=== PATIENT | female | born 1990 | race Caucasian/White ===

== ENCOUNTER 2018-09-10 16:26 | Emergency (ER) | payer MEDICAID, OTHER ==
[2018-09-10 16:27] VITALS: BMI 26.2
[2018-09-10 16:37] VITALS: RESP 18; O2SAT 100
[2018-09-10] MEDS ORDERED: Naproxen 550 mg Tab PO STA (16:55)
--- NOTE | 2018-09-10 17:03 | C.PDOC ---
History Of Present Illness 28 y/o female presents to ED complaining of right-sided rib pain since 3 days ago. States today she had cold sweats and lightheadedness. She denies any chest pain, breast pain, nausea, vomiting, or other complaints. Reports she took Advil with some relief. Chief Complaint (Nursing): Rib Injury History Per: Patient History/Exam Limitations: no limitations Onset/Duration Of Symptoms: Days Current Symptoms Are (Timing): Still Present Past Medical History Reviewed: Historical Data, Nursing Documentation, Vital Signs Vital Signs: Last Vital Signs Temp 98.7 F 09/10/18 16:33 Pulse 85 09/10/18 16:33 Resp 18 09/10/18 16:33 BP 131/83 09/10/18 16:33 Pulse Ox 100 09/10/18 16:33 Primary Care Provider: Clinic,Med Surg Family History: States: No Known Family Hx - Social History Hx Alcohol Use: Yes Hx Substance Use: No - Immunization History Hx Tetanus Toxoid Vaccination: No Hx Influenza Vaccination: No Hx Pneumococcal Vaccination: No Review Of Systems Constitutional: Negative for: Fever, Chills Cardiovascular: Negative for: Chest Pain Respiratory: Negative for: Shortness of Breath Gastrointestinal: Negative for: Nausea, Vomiting Musculoskeletal: Positive for: Other (right-sided rib pain). Negative for: Neck Pain Skin: Negative for: Rash Neurological: Negative for: Weakness, Numbness Physical Exam - Physical Exam Appears: Non-toxic, No Acute Distress Skin: Warm, Dry Head: Atraumatic, Normacephalic Eye(s): bilateral: Normal Inspection, PERRL Ear(s): Bilateral: Normal Nose: No Discharge Oral Mucosa: Moist Tongue: Normal Appearing Lips: Normal Appearing Throat: No Erythema, No Exudate Neck: Normal ROM, Supple Cardiovascular: Rhythm Regular Respiratory: Normal Breath Sounds, No Wheezing Gastrointestinal/Abdominal: Soft Extremity: Tenderness (slight tenderness under right breast along the rib cage, no erythema or ecchymosis), No Pedal Edema, No Calf Tenderness, No Deformity, No Swelling Extremity: Bilateral: Atraumatic, Normal Color And Temperature, Normal ROM Neurological/Psych: Oriented x3, Normal Speech, Normal Motor, Normal Sensation Gait: Steady ED Course And Treatment - Laboratory Results Result Diagrams: 09/10/18 17:35 09/10/18 17:35 O2 Sat by Pulse Oximetry: 100 (RA) Pulse Ox Interpretation: Normal - Other Rad Ribs with chest XR X-Ray: Read By Radiologist Interpretation: FINDINGS: RIGHT RIBS: No acute displaced fracture identified. LUNGS: No focal consolidation. Please note that chest x-ray has limited sensitivity for the detection of pulmonary masses. PLEURA: No significant pleural effusion. No definite pneumothorax. CARDIOVASCULAR: Heart size appears within normal limits. No pulmonary vascular congestion. No aortic atherosclerotic calcification present. OTHER FINDINGS: None. IMPRESSION: Unremarkable radiographs of the chest and right ribs. No appreciable displaced right rib fracture. Medical Decision Making Medical Decision Making: Plan: --Ribs and Chest XR ordered and reviewed --d/w patient and she will folow up with PMD if symptoms persist --Urine Preg- neg --Naproxen 550 mg PO -- patient stable for discharge Disposition Counseled Patient/Family Regarding: Studies Performed, Diagnosis, Need For Followup, Rx Given - Disposition Referrals: [facility] [facility] [Outside] Disposition: HOME/ ROUTINE Disposition Time: 18:11 Condition: IMPROVED Additional Instructions: Continue Naproxen BID Lidoderm patch to the site Follow up with PMD if symptoms persist Return to the ED if symptoms worsen Prescriptions: Lidocaine 5% [Lidoderm] 1 ea TD DAILY PRN #30 patch PRN Reason: Pain, Moderate (4-7) Naproxen [Naprosyn] 500 mg PO BID #30 tablet Instructions: Costochondritis (DC) Forms: [employer] (Greek) - Clinical Impression Clinical Impression: Rib pain on right side, Costochondritis - PA / LOCOMOTIVE OBSERVER / Resident Statement MD/DO has reviewed & agrees with the documentation as recorded. - Scribe Statement The provider has reviewed the documentation as recorded by the Radhaibflori Greenwood All medical record entries made by the Bandar were at my direction and personally dictated by me. I have reviewed the chart and agree that the record accurately reflects my personal performance of the history, physical exam, medical decision making, and the department course for this patient. I have also personally directed, reviewed, and agree with the discharge instructions and disposition.
[2018-09-10] MEDS ORDERED: Naproxen 550 mg Tab PO ONE (17:17)
[2018-09-10 17:43] LABS: BASO % 0.2 % (0.0-2.0); EOS # 0.1 K/uL (0.0-0.7); EOS % 1.3 % (0.0-4.0); HEMOGLOBIN 13.5 g/dL (11.0-16.0); LYMPH # 0.9 K/uL (1.0-4.3); MEAN CORPUSCULAR HEMOGLOBIN 32.3 pg (27.0-31.0); MEAN CORPUSCULAR HGB CONC 34.6 g/dL (33.0-37.0); MEAN PLATELET VOLUME 7.3 fL (7.2-11.7); MONO # 0.8 K/uL (0.0-0.8); MONO % 9.6 % (0.0-10.0); NEUT # 6.5 K/uL (1.8-7.0); NEUT % 77.9 % (50.0-75.0); RBC 4.17 Mil/uL (3.80-5.20); RED CELL DISTRIBUTION WIDTH 12.9 % (11.5-14.5); WHITE BLOOD COUNT 8.4 K/uL (4.8-10.8)
[2018-09-10 17:44] LABS: MEAN CELL VOLUME 93.5 fL (81.0-99.0)
[2018-09-10 17:55] LABS: ALB/GLOB RATIO 1.5 (1.0-2.1); ALBUMIN 4.5 g/dL (3.5-5.0); ALT/SGPT 75 U/L (9-52); AST/SGOT 54 U/L (14-36); BLOOD UREA NITROGEN 8 mg/dL (7-17); CALCIUM 10.1 mg/dl (8.6-10.4); GFR NON-AFRICAN AMERICAN > 60
[2018-09-10] MEDS ORDERED: Lidocaine 5% Patch TD STA (18:13)
--- NOTE | 2018-09-10 18:13 | RAD ---
Date of service: 09/10/2018 PROCEDURE: Radiographs of the Chest and Right Ribs. Three views. HISTORY: rib pain COMPARISON: None available. TECHNIQUE: Frontal radiograph of the chest and multiple oblique radiographs of the right ribs were obtained. FINDINGS: RIGHT RIBS: No acute displaced fracture identified. LUNGS: No focal consolidation. Please note that chest x-ray has limited sensitivity for the detection of pulmonary masses. PLEURA: No significant pleural effusion. No definite pneumothorax. CARDIOVASCULAR: Heart size appears within normal limits. No pulmonary vascular congestion. No aortic atherosclerotic calcification present OTHER FINDINGS: None. IMPRESSION: Unremarkable radiographs of the chest and right ribs. No appreciable displaced right rib fracture.
[2018-09-10] MEDS ORDERED: Lidocaine 5% Patch TD ONE (18:24)
[2018-09-10 18:26] VITALS: BP 134/75; PULSE 79; TEMP 99.3
== END 2018-09-10 18:26 | disposition home or self-care (01) ==
LOC: C.ER 16:26
DX: M94.0 Chondrocostal junction syndrome [Tietze] (principal)

== ENCOUNTER 2018-09-11 22:01 | Emergency (ER) | payer MEDICAID, OTHER ==
[2018-09-11 22:01] VITALS: BMI 26.2
--- NOTE | 2018-09-11 22:15 | C.PDOC ---
History Of Present Illness 28 year old female presents to the ED c/o persistent abdominal pain for the past 4 days. Patient c/o abdominal pain now in RLQ associated with bloating and nausea. Patient was seen in the ED on 09/10 for 3 day history of RUQ/RLQ abdom inal pain, sweats and lightheadedness. Patient at the time had CXR done, labs were negative, she was discharged with Naprosyn and Lidoderm. Patient reports since taking Naprosyn now with increased tingling of bilateral hands and legs. Patient denies focal weakness, fever, chills, diarrhea, back pain, UTI symptoms. Patient poor historian. POOR HISTORIAN PERSIST ABD PAIN X 4 DAYS. SEEN 09/10 FOR 3 DAYS RUQ/RIB PAIN, SWEATS AND LIGHTHEADEDNESS. CXR, LABS NEG. DC NAPROSYN AND LIDODERM. PS SINCE TAKING NAPROSYN NOW W INCR GEN TINGLING B/L HANDS AND LEGS. DENIES FOCAL WEAKNESS. ABD PAIN NOW IN RLQ, +ASSOC BLOATING. NO ASSOC W EATING. +NAUSEA. NO NEW FEVER. PSH NEG. DENIES UTI SX. EXAM MILD DIST NONTOXIC HEENT ANICERTIC; MMM ABD SOFT NT ND NO R/G REMAINDER NEG MDM PERSIST ABD PAIN. PT GIVING CONTRADICTORY DURATION OF SX, STATES SX X 2 DAYS DESPITE PRIOR VISITS DOCUMENTED X 3 DAYS. REPEAT LABS, IMAGING, REEVAL Time Seen by Provider: 09/11/18 22:13 Chief Complaint (Nursing): Medical Clearance History Per: Patient History/Exam Limitations: no limitations Onset/Duration Of Symptoms: Days (4) Current Symptoms Are (Timing): Still Present Reports Recently: Seen In ED (09/10/2018) Recent travel outside of the [place]: No Additional History Per: Patient Past Medical History Reviewed: Historical Data, Nursing Documentation, Vital Signs Vital Signs: Last Vital Signs Temp 97.7 F 09/11/18 22:06 Pulse 70 09/11/18 22:06 Resp 18 09/11/18 22:06 BP 146/74 09/11/18 22:06 Pulse Ox 99 09/11/18 22:06 Primary Care Provider: Non [facility] Provider, - Medical History PMH: No Chronic Diseases Denies: Chronic Kidney Disease Surgical History: No Surg Hx Family History: States: Unknown Family Hx - Social History Hx Alcohol Use: Yes Hx Substance Use: No - Immunization History Hx Tetanus Toxoid Vaccination: No Hx Influenza Vaccination: No Hx Pneumococcal Vaccination: No Review Of Systems Constitutional: Negative for: Fever, Chills Cardiovascular: Negative for: Chest Pain, Palpitations Respiratory: Negative for: Shortness of Breath Gastrointestinal: Positive for: Nausea, Abdominal Pain. Negative for: Vomiting, Diarrhea Genitourinary: Negative for: Dysuria, Hematuria, Vaginal Discharge Musculoskeletal: Negative for: Back Pain Skin: Negative for: Rash Neurological: Positive for: Other (tingling). Negative for: Weakness, Numbness, Headache, Dizziness Physical Exam - Physical Exam Appears: Non-toxic, In Acute Distress Skin: Normal Color, Warm, Dry Head: Atraumatic, Normacephalic Eye(s): bilateral: Normal Inspection (anicteric) Oral Mucosa: Moist Neck: Normal ROM, Supple Chest: Symmetrical Cardiovascular: Rhythm Regular Respiratory: Normal Breath Sounds, No Rales, No Rhonchi, No Wheezing Gastrointestinal/Abdominal: Soft, No Tenderness, No Distention, No Guarding, No Rebound Back: No CVA Tenderness Extremity: Normal ROM, No Tenderness, No Swelling Neurological/Psych: Oriented x3, Normal Speech, Normal Cognition Gait: Steady ED Course And Treatment - Laboratory Results Result Diagrams: 09/11/18 23:04 09/11/18 23:04 Urine POC: Negative ECG: Interpreted By Me, Viewed By Me ECG Rhythm: Sinus Rhythm Rate From EC (BPM) O2 Sat by Pulse Oximetry: 99 (ON RA) Pulse Ox Interpretation: Normal - CT Scan/US CT abd/pelvis Other Rad Studies (CT/US): Read By Radiologist, Radiology Report Reviewed CT/US Interpretation: CT SCAN OF THE ABDOMEN AND PELVIS WITH CONTRAST. CLINICAL HISTORY: Right lower quadrant pain. TECHNIQUE: Multiple axial and coronal CT i mages were obtained through the abdomen and pelvis after administration of intravenous contrast material. COMMENTS: Minimal ground glass densities in the right lower lobe, probably developing pneumonia. Unremarkable intrauterine device. Changes of pelvic congestion syndrome. Uncomplicated colonic diverticulosis. Distended bladder. The liver is of uniform attenuation without mass or defect. There is no intra or extrahepatic biliary ductal dilatation. The spleen is normal. The gallbladder is within normal limits. The pancreas is of normal contour and attenuation characteristics. There is no evidence of adrenal mass. Both kidneys demonstrate prompt and equal nephrograms. The kidneys are normal in size, shape and configuration. There is no evidence of renal or ureteral mass. No renal or ureteral calculi are identified. There is no hydroureter or hydronephrosis. No evidence for appendicitis. There is no bowel wall thickening. No evidence for small or large bowel obstruction. There is no evidence of abdominal ascites or lymphadenopathy. There is no evidence of intrinsic or extrinsic bladder mass. There is no pelvic ascites or lymphadenopathy. Images of the lung bases show no evidence of pleural or parenchymal mass. There are no pleural effusions. The bony structures are free of lytic or blastic lesions. IMPRESSION: Minimal ground glass densities in the right lower lobe, probably developing pneumonia. Unremarkable intrauterine device. Changes of pelvic congestion syndrome. Uncomplicated colonic diverticulosis. Distended bladder. Thank you for your kind referral of this patient. . Electronically signed on September 12, 2018 12:51:45 AM EDT by: Aissatou Hdez M.D., Certified by ABR, MSK, Neuroradiology. Progress - Re-Evaluation Re-evaluation Note: 09/11/18 23:30 ANXIOUS, VSS. PT REQUESTING TX FOR ANXIETY REACTION. CT PENDING 09/12/18 01:02 FEELS BETTER NAD VSS. CT REPORT REVIEWED - Data Reviewed Data Reviewed: Lab, Diagnostic imaging, Old records Medical Decision Making Medical Decision Making: Plan: * Labs * Lidocaine IV * IV fluids * Zofran 4 mg IVP * UA Persistent abd pain. Patient giving contradictory duration of symptoms, states symptoms for 3 days despite prior documented visits for 3 days. Will repeat labs, imaging and reeval Disposition Counseled Patient/Family Regarding: Studies Performed, Diagnosis, Need For Followup, Rx Given - Disposition Referrals: YOUR,PMD [Other] Disposition: HOME/ ROUTINE Disposition Time: 01:02 Condition: IMPROVED Prescriptions: Azithromycin 1 tab PO DAILY #4 tab Instructions: Community-Acquired Pneumonia, Adult (DC) Forms: [facility] (Indonesian), Work Excuse - Clinical Impression Clinical Impression: Community acquired pneumonia, Anxiety reaction - Scribe Statement The provider has reviewed the documentation as recorded by the Scribe Grayson Weldon All medical record entries made by the Scribe were at my direction and personally dictated by me. I have reviewed the chart and agree that the record accurately reflects my personal performance of the history, physical exam, medical decision making, and the department course for this patient. I have also personally directed, reviewed, and agree with the discharge instructions and disposition.
[2018-09-11] MEDS ORDERED: Sodium Chloride 0.9% 250 ML IV ONE (22:28)
[2018-09-11] MEDS ORDERED: Lidocaine 95 MG in Sodium Chloride 0.9% 100 ML IV STA (22:28)
[2018-09-11 23:11] LABS: HEMOGLOBIN 13.5 g/dL (11.0-16.0); MEAN CORPUSCULAR HGB CONC 34.6 g/dL (33.0-37.0); SQUAMOUS EPITHIAL 1 /hpf (0-5); URINE BILIRUBIN NEGATIVE (NEGATIVE); URINE BLOOD NEGATIVE (NEGATIVE); URINE CLARITY Clear (Clear); URINE COLOR Straw (YELLOW); URINE GLUCOSE (UA) NORMAL (Normal); URINE LEUKOCYTE ESTERASE NEG Leu/uL (Negative); URINE PROTEIN NEGATIVE (NEGATIVE); URINE UROBILINOGEN NORMAL mg/dL (0.2-1.0)
[2018-09-11 23:19] LABS: BASO % 0.2 % (0.0-2.0); EOS % 0.2 % (0.0-4.0); LYMPH # 1.2 K/uL (1.0-4.3); LYMPH % 16.8 % (20.0-40.0); MEAN CELL VOLUME 94.6 fL (81.0-99.0); MEAN CORPUSCULAR HEMOGLOBIN 32.7 pg (27.0-31.0); MEAN PLATELET VOLUME 7.8 fL (7.2-11.7); MONO % 13.3 % (0.0-10.0); NEUT # 5.1 K/uL (1.8-7.0); NEUT % 69.5 % (50.0-75.0); RBC 4.13 Mil/uL (3.80-5.20); RED CELL DISTRIBUTION WIDTH 12.9 % (11.5-14.5); WHITE BLOOD COUNT 7.3 K/uL (4.8-10.8)
[2018-09-11 23:21] LABS: ALB/GLOB RATIO 1.3 (1.0-2.1); ALBUMIN 4.6 g/dL (3.5-5.0); ALT/SGPT 76 U/L (9-52); AST/SGOT 53 U/L (14-36); BLOOD UREA NITROGEN 10 mg/dL (7-17); CALCIUM 10.3 mg/dl (8.6-10.4); GFR NON-AFRICAN AMERICAN > 60; LIPASE 46 U/L (23-300)
[2018-09-11] MEDS ORDERED: Iodixanol 320 MG/ML 100 ML BOTTLE IV ONE (23:44)
[2018-09-12] MEDS ORDERED: Azithromycin 500 MG in Sodium Chloride 0.9% 250 ML IV STA (00:57)
[2018-09-12] MEDS ORDERED: Azithromycin 500mg/250ML NS 500 MG/250 ML BAG IVPB ONE (01:11)
[2018-09-12 01:51] VITALS: RESP 16; O2SAT 98
[2018-09-12 02:35] VITALS: BP 113/58; PULSE 65; TEMP 98.4
--- NOTE | 2018-09-12 12:25 | CT ---
Date of service: 09/11/2018 PROCEDURE: CT Abdomen and Pelvis with contrast HISTORY: RLQ PAIN COMPARISON: None available. TECHNIQUE: Contrast dose: 100 mL Visipaque 320 IV Radiation dose: Total exam DLP = 839.54 mGy-cm. This CT exam was performed using one or more of the following dose reduction techniques: Automated exposure control, adjustment of the mA and/or kV according to patient size, and/or use of iterative reconstruction technique. FINDINGS: LOWER THORAX: Patchy right greater than left ground-glass nodular opacities may reflect developing pneumonia. No visible pleural effusion or pneumothorax. LIVER: Hypoattenuation of the liver compatible with hepatic steatosis. Hepatomegaly. GALLBLADDER AND BILE DUCTS: Unremarkable. PANCREAS: Unremarkable. SPLEEN: Unremarkable. ADRENALS: Unremarkable. KIDNEYS AND URETERS: The kidneys enhance symmetrically. No hydronephrosis or obstructing calculus identified. VASCULATURE: No aortic aneurysm. No atherosclerotic calcification or mural plaque present. BOWEL: Stomach is nondistended. Lack of oral contrast limits evaluation for bowel pathology. Bowel loops appear within normal limits of caliber without evidence of obstruction. Diverticulosis without CT evidence of acute diverticulitis. APPENDIX: The appendix appears within normal limits of caliber. No secondary signs of acute appendicitis. PERITONEUM: No significant free fluid. No definite free air. LYMPH NODES: No bulky adenopathy identified. BLADDER: Distended urinary bladder appears otherwise grossly unremarkable. REPRODUCTIVE: Uterus is present. IUD. Mild vascular prominence may reflect pelvic congestion syndrome. BONES: No acute osseous abnormality is detected. OTHER FINDINGS: None. IMPRESSION: Patchy right greater than left ground-glass nodular opacities may reflect developing pneumonia. Hypoattenuation of the liver compatible with hepatic steatosis. Hepatomegaly. Diverticulosis without CT evidence of acute diverticulitis. Urinary bladder distension, otherwise grossly unremarkable. Uterus is present. IUD. Mild vascular prominence may reflect pelvic congestion syndrome. Additional findings as above. Preliminary impression was provided by [employer].
--- NOTE | 2018-09-16 00:07 | CARD ---
APPROVED REPORT Date of service: 09/11/2018 EKG Measurement Heart [id number] [id number] <Conclusion> Normal sinus rhythm Nonspecific T wave abnormality Abnormal ECG
== END 2018-09-12 02:42 | disposition home or self-care (01) ==
LOC: C.ER 22:01
DX: J18.9 Pneumonia, unspecified organism (principal); F41.1 Generalized anxiety disorder
CPT/HCPCS: 74177; 80053; 81001; 81025; 83690; 85025; 96361; 96365; 96375; 99283; J0456; J2060; J2405; J7050; Q9967